=== PATIENT | female | born 1965 | race African-American/Black ===

== ENCOUNTER 2018-09-12 11:50 | Emergency (ER) | payer MEDICAID ==
[~2018-09-12] VITALS: Ht 165.1 cm; Wt 99.1 kg
[2018-09-12 11:53] VITALS: BP 130/85; Ht 165.1 cm; Wt 99.1 kg
== END 2018-09-12 12:39 | disposition home or self-care (01) ==
LOC: ED 11:50
DX: G89.29 Other chronic pain (principal); M54.9 Dorsalgia, unspecified; I10 Essential (primary) hypertension; Z76.0 Encounter for issue of repeat prescription